=== PATIENT | male | born 1955 | race Caucasian/White ===

== ENCOUNTER → 2024-03-22 12:39 | Outpatient (REF) | payer BC, SELFPAY | LOC: EMG 12:39 | PROVIDERS: ATTENDING PHYSICIAN Orthopaedic Surgery | DX: G56.03 Carpal tunnel syndrome, bilateral upper limbs (principal) | CPT/HCPCS: 95886; 95911 ==

== ENCOUNTER 2024-05-15 19:14 | Emergency (ER) | payer MEDICARE, SELFPAY ==
[2024-05-15 19:18] VITALS: BP 144/69
[2024-05-15 20:14] VITALS: BMI 19.8
[2024-05-15 20:40] LABS: % Basophils 0.9 % (0-2); % Eosinophils 5.2 % (0-6); % Immature Granulocytes 0.3 % (0-0.5); % Lymphocytes 12.9 % (20.5-51.1); % Monocytes 11.6 % (1.7-9.3); % Neutrophils 69.1 % (42.2-75.2); Absolute Basophils 0.1 10^3/uL (0-0.2); Absolute Eosinophils 0.4 10^3/uL (0-0.7); Absolute Monocytes 0.9 10^3/uL (0.1-0.6); Absolute Neutrophils 5.1 10^3/uL (1.4-6.5); Hematocrit 39.7 % (39.0-52.0); Hemoglobin 13.8 g/dL (13.0-18.0); Mean Corp Hgb Conc. 34.8 g/dL (33.0-37.0); Mean Corpuscular Hgb 32.6 pg (27.0-31.0); Mean Corpuscular Volume 93.9 fL (80.0-94.0); Mean Platelet Volume 9.1 fL (7.4-10.4); Nucleated Red Blood Cells % 0 % (-); Platelet Count 312 10^3/uL (130-400); Red Blood Cell Count 4.23 10^6/uL (4.70-6.10); Red Cell Dist. Width 12.4 % (11.5-14.5); White Blood Cell Count 7.4 10^3/uL (4.8-10.8)
[2024-05-15 20:49] VITALS: BP 124/75
[2024-05-15 20:52] LABS: ALT (SGPT) 13 U/L (0-50); AST (SGOT) 22 U/L (17-59); Albumin 3.9 g/dl (3.5-5.0); Alkaline Phosphatase 100 U/L (38-126); Blood Urea Nitrogen 15 mg/dl (9-20); Calcium 9.4 mg/dl (8.4-10.2); Carbon Dioxide 25 mmol/L (22-30); Chloride 104 mmol/L (98-107); Estimated Creatinine Clearance 93 ml/min; Glucose 114 mg/dl (70-99); HDL Cholesterol 62 mg/dl; LDL Cholesterol, Calculated 82 mg/dl; Potassium 3.7 mmol/L (3.5-5.1); Sodium 137 mmol/L (135-145); Total Bilirubin 0.7 mg/dl (0.2-1.3); Total Cholesterol 182 mg/dl (50-199); Total Protein 6.4 g/dl (6.3-8.2); Triglyceride 194 mg/dl (10-149); Very Low Density Lipoprotein 38 mg/dl (0-30); eGFR > 60.00
[2024-05-15 21:00] VITALS: BP 132/69
--- NOTE | 2024-05-15 21:02 | ED.GENMED ---
History of Present Illness
General
Chief Complaint: Extremity Pain (non-traumatic)
Source: patient and family (Daughter)
Exam Limitations: none
Time Seen by Provider: 05/15/24 20:20
Nursing documentation reviewed up to this point in time: agreed with
History of Present Illness
History of Present Illness:
68-year-old male with no reported chronic medical issues (does not see a doctor regularly according to daughter), heavy smoker presents to the emergency department with his daughter for evaluation of generalized weakness. Patient reports that for
the past 2 months or so he has noticed that he has some weakness in his legs that seems to get better as the day goes on. He says that the symptoms have generally improved recently but he started to notice that he is now having some weakness in the
arms as well. He says weakness is symmetric not worse on one side or the other. Aside from generalized weakness he has not noticed any other specific symptoms�denies any change in his vision or speech, headaches, neck pain, back pain, or other
acute issues. Only notable recent history is recent surgery for carpal tunnel syndrome in the left upper extremity. He says he is also scheduled for similar surgery on the right side in the future. He says that he was talking to his daughter
about the symptoms and they discussed with a family member who is a nurse and recommended that he go to the hospital to be evaluated to rule out stroke.
Review of Systems
Review of Systems
All Other Systems: ROS reviewed and negative except as documented in HPI and ROS
Constitutional: Denies fever or chills
Respiratory: Denies trouble breathing
Cardiac: Denies chest pain
ABD/GI: Denies abdominal pain, nausea or vomiting
: Denies flank pain
Musculoskeletal: Denies neck pain or back pain
Neurological: Reports weakness; Denies dizzy or headache
Phy Exam
Physical Exam
Physical Exam:
General: Awake, alert, oriented x3; no acute distress
Head: Normocephalic, atraumatic
Eyes: Conjunctiva normal, EOMI, pupils equal round and reactive to light bilaterally
Throat: Airway intact, handling secretions
Neck: Trachea midline, supple without meningismus
Lungs: Clear to auscultation bilaterally, no wheezing, rales, rhonchi
Heart: Regular rate and rhythm, no murmurs, gallops, or rubs
Abd: Soft, non distended, nontender
Neuro: Cranial nerves intact 2 through 12, speech fluid without dysarthria or aphasia, no limb ataxia on strength testing of the left arm he has weakness on mesh cutter strength status post recent surgery but proximal strength in the left side is intact;
motor and sensory is intact throughout the rest of the extremities
Skin: Incision on palmar aspect of the left wrist from recent surgery without signs of infection
Extremities: No edema in extremities, equal pulses in all extremities
Scores
Heart Failure Risk
Heart Failure Risk Score: Not Applicable
Heart Score for Chest Pain Patients
STEMI patient?: Not applicable
Withdrawal Assessment of Alcohol
Withdrawal Assessment Completed?: Not applicable
Course
Orders/Labs/Results
Orders:
Orders
05/15/24 20:22
Cardiovascular Evaluation Urgent
Complete Blood Count/With Diff Urgent
Comprehensive Metabolic Panel Urgent
Glycohemoglobin (HgbA1c) Urgent
TSH Reflex To Free T4 Urgent
Comment: ADD ON
05/15/24 20:30
Electrocardiogram (*1) Urgent
Reason for Study: Fatigue / Weakness
EKG- Treatment ONCE
05/15/24 20:31
CT Head W/o Iv Contrast Urgent
Comment:
Reason For Exam: weakness right arm
05/15/24 20:46
Troponin I Urgent
Abnormal Lab Results
05/15/24
20:22
RBC 4.23 L 10^6/uL
(4.70-6.10)
MCH 32.6 H pg
(27.0-31.0)
Absolute Lymphs (auto) 1.0 L 10^3/uL
(1.2-3.4)
Absolute Monos (auto) 0.9 H 10^3/uL
(0.1-0.6)
Lymphocytes % 12.9 L %
(20.5-51.1)
Monocytes % 11.6 H %
(1.7-9.3)
Glucose 114 H mg/dl
(70-99)
Triglycerides 194 H mg/dl
(10-149)
VLDL Cholesterol, Calc 38 H mg/dl
(0-30)
05/15/24 20:22
05/15/24 20:22
Vital Signs
Initial and Last Documented VS:
Initial Vital Signs
Temp Pulse Resp BP Pulse Ox
36.4 C 69 16 144/69 98
05/15/24 19:18 05/15/24 19:18 05/15/24 19:18 05/15/24 19:18 05/15/24 19:18
Last Documented Vital Signs
Temp Pulse Resp BP Pulse Ox
36.4 C 72 16 132/69 97
05/15/24 19:18 05/15/24 20:49 05/15/24 20:49 05/15/24 21:00 05/15/24 21:15
MDM/Problems Addressed
Differential Diagnosis Includes:
Anemia, electrolyte derangement, diabetes/hyperglycemia, dysrhythmia, deconditioning, rheumatologic issue, stroke less likely
MDM/Problems Addressed:
68-year-old male presents for evaluation of generalized weakness�she reports bilateral leg weakness that improves as the day goes on this has been ongoing for 2 months but generally improving. He says lately his arms have been weak as well. Family
was concerned for possible stroke which prompted ER visit�he stated that he does not typically follow with a doctor. Vitals and exam as above�he does have weakness on the mesh cutter strength in the left after carpal tunnel surgery last week but his
neurologic exam otherwise shows no focal weakness I suspect this weakness is postsurgical. His history is really inconsistent with stroke. Nevertheless we will check CT head in an abundance of caution. Will check labs including CBC and a CMP, can
send health maintenance labs such as lipid panel and hemoglobin A1c in anticipation of need for PCP follow-up. Check thyroid studies, EKG. Will reassess after the above.
Labs reviewed: CBC unremarkable, CMP no clinically significant abnormalities. Troponin undetectable. Triglycerides are slightly high, LDL acceptable, HDLs acceptable. CT head no acute pathology. EKG shows sinus rhythm. Low suspicion for
emergent pathology but I had a long discussion with patient and daughter and encouraged health maintenance. Provided referral to PCP referral line and patient assured me with follow-up. Stable for discharge. All questions answered.
*Radiology
Radiology exam reviewed: radiology read reviewed
*Pulse Oximetry
Patient hypoxic: no
*Critical Care Note
Total Time (30-74mins, 75-104mins- exclusive of procedures): Not Applicable
Data Reviewed
Source: patient and family
ED Attending Note
-
Portions of this chart may have been created with voice recognition software.� Occasional wrong word or��sound alike� substitutions may have occurred due to the inherent limitations of voice recognition software.
Discharge Plan
Departure
Patient Disposition: Home (Routine Discharge)
Date of Disposition: 05/15/24
Time of Disposition: 22:42
Patient with high blood pressure during this ER visit?: Yes
Discharge Problem:
Weakness
Instructions: Weakness - ED discharge instructions
Referrals:
NONE,* [Family Provider] -
Activity Restrictions/Additional Instructions:
Thank you for visiting the Emergency Department at [facility].
1. Please schedule a follow up appointment as directed. Call first thing tomorrow morning to make an appointment.
2. If indicated, please take your medications as instructed and indicated on discharge paperwork.
3. If any of your symptoms do not improve, or persist, or become more severe within 6-12 hours, please return to the emergency department for further care.
4. Please return to the emergency department if you develop a headache, neck pain/stiffness, fever greater than 100.4F, chest pain, shortness of breath, persistent nausea, vomiting, slurred speech, difficulty walking, numbness/tingling, weakness,
signs of infection or any other symptoms that are worrisome to you.
Please call [phone] if you have any questions.
Interventions
Interventions:
*Risk Screen - Suicide Last Done: 05/15/24 20:14
*General Assessment Last Done: 05/15/24 20:14
*Neglect/Abuse Screening Last Done: 05/15/24 20:14
*ED- Fall Risk Assessment Last Done: 05/15/24 20:14
*ED COVID-19 Vaccine History Last Done: 05/15/24 20:14
ED-Skin Assessment Last Done: 05/15/24 20:24
ED-Peripheral Vascular Assessment Last Done: 05/15/24 20:24
ED-Musculoskeletal Assessment Last Done: 05/15/24 20:24
Discharge Date and Time
Print Language: LATVIAN
[2024-05-15 21:25] LABS: Troponin I 0.021 ng/ml
[2024-05-16 10:30] LABS: Glycohemoglobin (HgbA1c) 5.4 % (4.0-5.6)
== END 2024-05-15 22:57 | disposition home or self-care (01) ==
LOC: EMR 19:14
PROVIDERS: EMERGENCY PHYSICIAN Emergency Medicine
DX: R53.1 Weakness (principal); Z98.890 Other specified postprocedural states
CPT/HCPCS: 99284; 70450; 80053; 80061; 83036; 84443; 84484; 85025; 93005

== ENCOUNTER → 2024-07-05 12:29 | Outpatient (REF) | payer BC, SELFPAY ==
[2024-07-05 16:28] LABS: Erythrocyte Sed Rate 23 mm/hour (0-20)
[2024-07-08 02:02] LABS: CCP Antibody IgG/IgA 51 Units (0-19)
== END ==
LOC: HWRAD 12:29
PROVIDERS: ATTENDING PHYSICIAN Physician Assistant; FAMILY PHYSICIAN Family Medicine
DX: Z12.5 Encounter for screening for malignant neoplasm of prostate (principal); M25.539 Pain in unspecified wrist; M79.643 Pain in unspecified hand; M25.50 Pain in unspecified joint
CPT/HCPCS: 36415; 73110; 73130; 85652; 86140; 86200; 86430; G0103

== ENCOUNTER → 2024-08-06 12:15 | Outpatient (REF) | payer OTHER, SELFPAY | LOC: PET 12:15 | PROVIDERS: ATTENDING PHYSICIAN Specialist | DX: C61 Malignant neoplasm of prostate (principal) | CPT/HCPCS: 78815 ==

== ENCOUNTER → 2024-08-07 09:08 | Outpatient (REF) | payer OTHER, SELFPAY | LOC: RAD 09:08 | PROVIDERS: ATTENDING PHYSICIAN Specialist; FAMILY PHYSICIAN Family Medicine | DX: C61 Malignant neoplasm of prostate (principal) | CPT/HCPCS: 78306; A9503 ==

== ENCOUNTER → 2024-08-22 19:27 | Outpatient (REF) | payer OTHER, SELFPAY | LOC: MRI 3T 19:27 | PROVIDERS: ATTENDING PHYSICIAN Specialist; FAMILY PHYSICIAN Family Medicine | DX: C61 Malignant neoplasm of prostate (principal) | CPT/HCPCS: 72197; A9575 ==

== ENCOUNTER 2024-11-15 06:14 | Day surgery (SDC) | payer OTHER, SELFPAY ==
[2024-11-02 11:01] LABS: Hematocrit 41.9 % (39.0-52.0); Hemoglobin 14.1 g/dL (13.0-18.0); Mean Corp Hgb Conc. 33.7 g/dL (33.0-37.0); Mean Corpuscular Volume 95.2 fL (80.0-94.0); Platelet Count 337 10^3/uL (130-400); Red Cell Dist. Width 12.7 % (11.5-14.5)
[2024-11-02 11:21] LABS: Blood Urea Nitrogen 14 mg/dl (9-20); Calcium 9.5 mg/dl (8.4-10.2); Carbon Dioxide 28 mmol/L (22-30); Chloride 105 mmol/L (98-107); Glucose 87 mg/dl (70-99); Potassium 4.4 mmol/L (3.5-5.1); Sodium 139 mmol/L (135-145); eGFR > 60.00
[2024-11-02 14:09] VITALS: BMI 20.5
--- NOTE | 2024-11-08 14:15 | VNURNOTE ---
Addendum entered by Halima Woods RN 11/16/24 09:36:
Home Health Liaison met with patient at bedside to discuss [facility] nurse/therapy, visits, schedule and homebound status. Patient is agreeable and understands that visits at home will be 2-3 x per week to assess and teach medical management. Patient
is aware that [facility] will contact them for start of care in 1-2 days after discharge from . Pt has dogs, aware and agreeable to pet policy. Provided contact number for [facility].
[facility] referral accepted in [facility].
Original Note:
Chart reviewed. Anticipating VN needs post op per Preadmission Testing RN. Referral for [facility] placed in [facility].
[2024-11-15] VITALS (10 sets, daily range): BP systolic 100–138; BP diastolic 51–68; BMI 20.5
[2024-11-15] MEDS: NORMOSOL-R/PLASMALYTE-A 1000 IV ×2 (11:14→18:24)
[2024-11-15 17:39] LABS: Hematocrit 37.1 % (39.0-52.0); Hemoglobin 12.7 g/dL (13.0-18.0)
[2024-11-15 17:54] LABS: Blood Urea Nitrogen 14 mg/dl (9-20); Calcium 8.1 mg/dl (8.4-10.2); Carbon Dioxide 27 mmol/L (22-30); Chloride 106 mmol/L (98-107); Estimated Creatinine Clearance 84 ml/min; Glucose 145 mg/dl (70-99); Potassium 4.2 mmol/L (3.5-5.1); Sodium 136 mmol/L (135-145); eGFR > 60.00
[2024-11-15] MEDS: TORADOL 15 MG IV (18:20)
[2024-11-15] MEDS: LOVENOX 40 MG SC (18:21)
--- NOTE | 2024-11-15 18:30 | PTCARENOTE ---
1800 Pt arrived from PACU. Pt AAOX3. per Pacu nurse and upon assessment crepitus noted along upper chest and neck. VSS. IVF infuaing 7 lap aites open to air with glue. Oriented to room and call quiroga. bed locked and in lowest position.
[2024-11-15] MEDS: SENOKOT 17.2 MG PO (19:38)
[2024-11-15] MEDS: PLAQUENIL 200 MG PO (19:38)
[2024-11-15] MEDS: VALIUM INJECTION 5 MG IV (19:39)
[2024-11-15] MEDS: POLYSPORIN/DOUBLE ANTIBIOTIC 1 APPLIC TOPICAL (20:02)
[2024-11-16] MEDS: TORADOL 15 MG IV ×3 (00:06→12:37)
[2024-11-16] MEDS: NORMOSOL-R/PLASMALYTE-A 1000 IV (01:29)
[2024-11-16 03:00] VITALS: BP 126/68
[2024-11-16] MEDS: VALIUM INJECTION 5 MG IV (03:58)
[2024-11-16 06:00] VITALS: BMI 20.5
[2024-11-16 07:30] VITALS: BP 115/61
[2024-11-16 07:38] LABS: Hematocrit 34.3 % (39.0-52.0); Hemoglobin 11.5 g/dL (13.0-18.0); Mean Corp Hgb Conc. 33.5 g/dL (33.0-37.0); Mean Corpuscular Volume 98.8 fL (80.0-94.0); Platelet Count 250 10^3/uL (130-400); Red Cell Dist. Width 12.8 % (11.5-14.5)
[2024-11-16 08:07] LABS: Blood Urea Nitrogen 15 mg/dl (9-20); Calcium 8.3 mg/dl (8.4-10.2); Carbon Dioxide 28 mmol/L (22-30); Chloride 105 mmol/L (98-107); Estimated Creatinine Clearance 83 ml/min; Glucose 103 mg/dl (70-99); Potassium 4.0 mmol/L (3.5-5.1); Sodium 136 mmol/L (135-145); eGFR > 60.00
[2024-11-16] MEDS: SENOKOT 17.2 MG PO (08:21)
[2024-11-16] MEDS: PLAQUENIL 200 MG PO (08:21)
[2024-11-16] MEDS: POLYSPORIN/DOUBLE ANTIBIOTIC 1 APPLIC TOPICAL (08:21)
--- NOTE | 2024-11-16 08:28 | W.PN.URO.CBU ---
Today's Communication / Plan
-
Discharge
Assessment / Plan
-
69M POD 1 s/p RALP/PLND
- Reg diet
- ambulate
- PO pain control
- IS
- Gooden to leg bag
- Discharge today
Diagnosis
-
Date of Service: November 16, 2024
-
Patient Diagnosis:prostate cancer
pod 1 s/p RALP/PLND
Post Op Day:
Subjective
-
no events
edwina ncontrolled
Objective
-
Vital Signs
Temp Pulse Resp BP Pulse Ox
97.7 F 61 18 115/61 100
11/16/24 07:30 11/16/24 07:30 11/16/24 07:30 11/16/24 07:30 11/16/24 07:30
Intake and Output
11/15/24 11/16/24 11/17/24
06:59 06:59 06:59
Intake Total 1960 / 1960
Output Total 1425 / 1425
Balance 535 / 535
Intake:
Oral fluids 360 / 360
IV fluids (Total) 1600 / 1600
normosol 100 / 100
Output:
Urine, Gooden 1425 / 1425
Laboratory Results
11/16/24 06:09
11/16/24 06:09
Physical Exam
-
General - well developed, well nourished, no acute distress
Chest - clear bilaterally
Abdomen - soft, non-tender
Gooden clear urine
Skin - warm & dry with no rash
Neuro - AOx3, no motor deficits
Extremities - no clubbing, no cyanosis, no edema
Incision - clean, dry
Dressing - clean, dry, intact
--- NOTE | 2024-11-16 08:42 | CM ---
Patient confirmed demographics. Patient's is requesting [facility] for [facility] care. 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 CM updated [facility] Admission RN with plan for home care.
PLAN: Home with [facility].
[2024-11-16 11:38] VITALS: BP 112/51
[2024-11-16] MEDS: FLUZONE HIGH-DOSE 2025-26 0.5 ML IM (12:35)
== END 2024-11-16 13:14 | disposition home or self-care (01) ==
LOC: SDS 06:14
PROVIDERS: ATTENDING PHYSICIAN Urology
DX: C61 Malignant neoplasm of prostate (principal); C79.11 Secondary malignant neoplasm of bladder
CPT/HCPCS: 55866; 36415; 80048; 85014; 85018; 85027; 86850; 86900; 86901; 88307; 88309; 88341; 88342; 90662; G0008

== ENCOUNTER 2025-01-24 06:31 | Outpatient (RCR) | payer OTHER, SELFPAY | END 2025-01-24 23:59 | disposition home or self-care (01) | LOC: RPT 06:31 | PROVIDERS: ATTENDING PHYSICIAN Urology; FAMILY PHYSICIAN Family Medicine | DX: D07.5 Carcinoma in situ of prostate (principal); Z73.6 Limitation of activities due to disability; M62.81 Muscle weakness (generalized); Z98.890 Other specified postprocedural states; Z90.79 Acquired absence of other genital organ(s) | CPT/HCPCS: 97110; 97161; 97530 ==